=== PATIENT | male | born 1975 | race African-American/Black ===

== ENCOUNTER 2021-04-18 13:27 | Emergency (ER) | payer OTHER ==
[~2021-04-18] VITALS: Ht 180.3 cm; Wt 71.0 kg
[2021-04-18] MEDS ORDERED: IBUPROFEN 600MG TABLET PO ONE (13:45)
[2021-04-18 16:12] VITALS: BP 126/87
[2021-04-18] MEDS ORDERED: IBUP-2029 MT (17:04)
== END 2021-04-18 17:14 | disposition home or self-care (01) ==
LOC: ER 13:27
DX: S60.022A Contusion of left index finger without damage to nail, initial encounter (principal); Z91.041 Radiographic dye allergy status; Z98.890 Other specified postprocedural states; W22.8XXA Striking against or struck by other objects, initial encounter; Y93.89 Activity, other specified; Y92.89 Other specified places as the place of occurrence of the external cause; Y99.8 Other external cause status
CPT/HCPCS: 29130; 73130; 99283

== ENCOUNTER 2023-01-06 11:34 | Emergency (ER) | payer OTHER ==
[~2023-01-06] VITALS: Ht 177.8 cm; Wt 68.0 kg
[~2023-01-06 11:34] MED LIST: IBUP-2029 MT
[2023-01-06 11:55] VITALS: O2SAT 100
[2023-01-06] MEDS ORDERED: CYCL5TAB PO (14:14)
[2023-01-06] MEDS ORDERED: NAPR-681 PO (14:14)
[2023-01-06 17:21] VITALS: BP 136/89; PULSE 78; RESP 18; TEMP 97.7
== END 2023-01-06 17:22 | disposition home or self-care (01) ==
LOC: ER 11:34
DX: M79.644 Pain in right finger(s) (principal); M54.9 Dorsalgia, unspecified; M54.2 Cervicalgia; Z91.041 Radiographic dye allergy status; W18.30XA Fall on same level, unspecified, initial encounter; Y93.89 Activity, other specified; Y92.89 Other specified places as the place of occurrence of the external cause; Y99.8 Other external cause status
CPT/HCPCS: 72100; 73130; 99284

== ENCOUNTER 2023-02-18 09:03 | Emergency (ER) | payer OTHER ==
[~2023-02-18] VITALS: Ht 177.8 cm; Wt 61.0 kg
[~2023-02-18 09:03] MED LIST changes: +CYCL5TAB PO; +NAPR-681 PO
[2023-02-18 09:17] VITALS: O2SAT 100
[2023-02-18] MEDS ORDERED: IBUPROFEN 600MG TABLET PO ONE (10:00)
[2023-02-18] MEDS ORDERED: IBUP-2029 MT (10:32)
[2023-02-18 10:56] VITALS: BP 135/78; PULSE 85; RESP 16; TEMP 98.7
== END 2023-02-18 10:58 | disposition home or self-care (01) ==
LOC: ER 09:03
DX: M25.571 Pain in right ankle and joints of right foot (principal); Z91.040 Latex allergy status; Z98.890 Other specified postprocedural states; V19.9XXA Pedal cyclist (driver) (passenger) injured in unspecified traffic accident, initial encounter; Y93.89 Activity, other specified; Y92.89 Other specified places as the place of occurrence of the external cause; Y99.8 Other external cause status
CPT/HCPCS: 73600; 99283

== ENCOUNTER 2023-05-23 19:59 | Emergency (ER) | payer SELFPAY ==
[~2023-05-23] VITALS: Ht 180.3 cm; Wt 69.0 kg
[2023-05-23 20:07] VITALS: TEMP 97.8; O2SAT 98
[2023-05-23] MEDS ORDERED: HYDROCODONE/ACETAMINOPHEN 5/325MG TABLET PO ONE (20:45)
[2023-05-23] MEDS ORDERED: LIDO700A15 TP (23:35)
[2023-05-23] MEDS ORDERED: NAPR-1176 MT (23:35)
[2023-05-23 23:45] VITALS: BP 124/80; PULSE 97; RESP 18
[2023-05-23] MEDS ORDERED: HYDROCODONE/ACETAMINOPHEN 5/325MG TABLET PO NR (23:45)
== END 2023-05-24 00:10 | disposition home or self-care (01) ==
LOC: ER 19:59
DX: M25.562 Pain in left knee (principal); M25.552 Pain in left hip; M54.9 Dorsalgia, unspecified; Z98.890 Other specified postprocedural states; Z91.040 Latex allergy status; Z91.013 Allergy to seafood; V19.88XA Pedal cyclist (driver) (passenger) injured in other specified transport accidents, initial encounter; Y93.89 Activity, other specified; Y92.89 Other specified places as the place of occurrence of the external cause; Y99.8 Other external cause status
CPT/HCPCS: 73502; 73562; 99284

== ENCOUNTER 2025-02-04 10:18 | Emergency (ER) | payer MEDICAID, OTHER ==
[~2025-02-04] VITALS: Ht 180.3 cm; Wt 68.0 kg
[~2025-02-04 10:18] MED LIST changes: -CYCL5TAB PO; +CYCL5TAB3 PO; +IBUP-1455 MT; -IBUP-2029 MT; +LIDO-53 TP; +NAPR-1176 MT
[2025-02-04 10:24] VITALS: O2SAT 99
[2025-02-04] MEDS: IBUPROFEN 400MG TABLET PO ONE (10:56)
[2025-02-04] MEDS: TETANUS, DIPHTHERIA, PERTUSSIS VAC/PF 0.5ML (>10YR OLD) IM ONE (11:51)
[2025-02-04] MEDS: HYDROCODONE/ACETAMINOPHEN 5/325MG TABLET PO ONE (11:52)
[2025-02-04] MEDS ORDERED: IBUP-2028 MT (12:12)
[2025-02-04] MEDS ORDERED: CYCL5TAB3 MT (12:12)
[2025-02-04 12:41] VITALS: BP 120/81; PULSE 88; RESP 14; TEMP 36.8; O2SAT 99
[2025-02-04] MEDS: LIDOCAINE 5% PATCH TOP SCH (12:41)
== END 2025-02-04 12:42 | disposition home or self-care (01) ==
LOC: ER 10:18
DX: S06.0XAA Concussion with loss of consciousness status unknown, initial encounter (principal); S01.81XA Laceration without foreign body of other part of head, initial encounter; S16.1XXA Strain of muscle, fascia and tendon at neck level, initial encounter; Z91.013 Allergy to seafood; Z88.8 Allergy status to other drugs, medicaments and biological substances; W01.0XXA Fall on same level from slipping, tripping and stumbling without subsequent striking against object, initial encounter; Y93.01 Activity, walking, marching and hiking; Y92.89 Other specified places as the place of occurrence of the external cause; Y99.8 Other external cause status
CPT/HCPCS: 70450; 72125; 90715; 90471; 99285; Z7610 ×2

== ENCOUNTER 2025-02-15 14:53 | Emergency (ER) | payer SELFPAY ==
[~2025-02-15] VITALS: Ht 180.3 cm; Wt 62.0 kg
[~2025-02-15 14:53] MED LIST changes: +CYCL5TAB3 MT; +IBUP-2028 MT
[2025-02-15 14:55] VITALS: O2SAT 98
[2025-02-15 15:07] VITALS: BP 113/73; PULSE 96; RESP 16; TEMP 36.8; O2SAT 97
== END 2025-02-15 19:38 | disposition left against medical advice (07) ==
LOC: ER 14:53
DX: S06.0XAA Concussion with loss of consciousness status unknown, initial encounter (principal); X58.XXXA Exposure to other specified factors, initial encounter; Y93.89 Activity, other specified; Y92.89 Other specified places as the place of occurrence of the external cause; Y99.8 Other external cause status
CPT/HCPCS: 99281; 99284

== ENCOUNTER 2025-02-18 08:37 | Emergency (ER) | payer SELFPAY ==
[~2025-02-18] VITALS: Ht 180.3 cm; Wt 62.0 kg
[2025-02-18 08:44] VITALS: O2SAT 100
[2025-02-18] MEDS: KETOROLAC 30MG/ML VIAL IM ONE (09:13)
[2025-02-18] MEDS: LIDOCAINE 5% PATCH TOP SCH (09:14)
[2025-02-18] MEDS ORDERED: LIDO-53 TP (11:19)
[2025-02-18 11:29] VITALS: BP 110/70; PULSE 89; RESP 15; TEMP 37.1; O2SAT 100
== END 2025-02-18 11:29 | disposition home or self-care (01) ==
LOC: ER 08:41
DX: S16.1XXA Strain of muscle, fascia and tendon at neck level, initial encounter (principal); M25.512 Pain in left shoulder; M25.511 Pain in right shoulder; Z88.8 Allergy status to other drugs, medicaments and biological substances; W01.0XXA Fall on same level from slipping, tripping and stumbling without subsequent striking against object, initial encounter; Y93.89 Activity, other specified; Y92.89 Other specified places as the place of occurrence of the external cause; Y99.8 Other external cause status
CPT/HCPCS: 99283; 73030; 96372; J1885